=== PATIENT | male | born 1925 | race Caucasian/White ===

== ENCOUNTER 2016-10-13 06:49 | Day surgery (SDC) | payer OTHER ==
[2016-10-13 09:03] LABS: INR 1.26; PROTIME 13.4 Seconds (9.2-11.7); PTT 25.9 Seconds (22.0-36.0)
[2016-10-13 12:06] VITALS: BP 102/66
--- NOTE | 2016-10-13 12:35 | Diag Imaging Result Document ---
PROCEDURE NAME: US PARACENTESIS - 10/13/2016 ULTRASOUND-GUIDED PARACENTESIS: TECHNIQUE AND FINDINGS: Prior to the procedure, I discussed the risks and benefits with the patient. Primary risks include: bleeding, infection, bowel injury, and liver injury. The questions were answered. The patient then gave consent. The permit was signed. The patient was placed supine on the production tech's table. The largest fluid collection in the right lower quadrant was localized with ultrasound. This area was cleaned and draped in the normal fashion. Lidocaine was used as a local anesthetic. Needle and catheter were advanced into the fluid collection on the first pass without difficulty. Needle was withdrawn. Catheter was hooked to suction. 4.5 liters of thin yellowish fluid were withdrawn. Catheter was then withdrawn. The patient had no complaints during or following the procedure. IMPRESSION: Ultrasound-guided paracentesis with no immediate postprocedural complications.
== END 2016-10-13 12:00 | disposition hospice, home (50) ==
LOC: US 06:49
PROVIDERS: ATTEND Internal Medicine
DX: R18.8 Other ascites (principal); Z79.52 Long term (current) use of systemic steroids; Z79.82 Long term (current) use of aspirin; Z79.899 Other long term (current) drug therapy
CPT/HCPCS: 49083; 85610; 85730